=== PATIENT | female | born 1965 | race Caucasian/White ===

== ENCOUNTER 2021-03-03 14:23 | Outpatient (CLI) | payer OTHER | END 2021-03-03 14:24 | disposition home or self-care (01) | LOC: CSHMAMMO 14:23 | PROVIDERS: ATTEND Student in an Organized Health Care Education/Training Program | DX: Z12.31 Encounter for screening mammogram for malignant neoplasm of breast (principal) | CPT/HCPCS: 77063; 77067 ==

== ENCOUNTER 2022-03-09 10:10 | Outpatient (CLI) | payer OTHER | END 2022-03-09 10:11 | disposition home or self-care (01) | LOC: CSHMAMMO 10:10 | PROVIDERS: ATTEND Student in an Organized Health Care Education/Training Program | DX: Z12.31 Encounter for screening mammogram for malignant neoplasm of breast (principal) | CPT/HCPCS: 77063; 77067 ==

== ENCOUNTER 2023-04-10 10:35 | Outpatient (CLI) | payer OTHER | END 2023-04-10 10:36 | disposition home or self-care (01) | LOC: CSHMAMMO 10:35 | PROVIDERS: ATTEND Student in an Organized Health Care Education/Training Program | DX: Z12.31 Encounter for screening mammogram for malignant neoplasm of breast (principal) | CPT/HCPCS: 77063; 77067 ==